=== PATIENT | female | born 1990 | race African-American/Black ===

== ENCOUNTER 2019-09-18 09:08 | Emergency (ER) | payer MEDICAID ==
[~2019-09-18] VITALS: Ht 162.6 cm; Wt 104.3 kg
[~2019-09-18 09:08] MED LIST: DEPO PROVERA
[2019-09-18 09:40] VITALS: BP 97/54
== END 2019-09-18 09:57 | disposition home or self-care (01) ==
LOC: ER 09:08
DX: S80.862A Insect bite (nonvenomous), left lower leg, initial encounter (principal); L08.89 Other specified local infections of the skin and subcutaneous tissue; W57.XXXA Bitten or stung by nonvenomous insect and other nonvenomous arthropods, initial encounter; Y93.89 Activity, other specified; Y92.89 Other specified places as the place of occurrence of the external cause; Y99.8 Other external cause status